=== PATIENT | male | born 1990 | race Caucasian/White ===

== ENCOUNTER 2017-04-07 08:59 | Emergency (ER) | payer SELFPAY ==
[~2017-04-07] VITALS: Ht 175.3 cm; Wt 67.6 kg
[~2017-04-07 08:59] MED LIST: AMOX500C2 PO; CITA10TA PO; CPR500T PO; FLUO10CA29 PO; HYDR-3720 PO; HYDR1TAB PO; LISD50CA PO; LISD60CA PO; METH10TA3 PO; NAPR-243 PO; NAPR550T PO; PENI250T4; PHEN1SUP3 RC; TRM50T; TRM50T PO; [UNRECOGNIZED DRUG - OTHER]
[2017-04-07] MEDS ORDERED: METH10TA3 PO (09:20)
[2017-04-07] MEDS ORDERED: METH-288 (09:20)
[2017-04-07] MEDS ORDERED: TRAZ100T92 PO (09:21)
[2017-04-07 09:54] LABS: BASOPHILS % (AUTO) 0 % (0-10); EOSINOPHILS % (AUTO) 0 % (0-10); LYMPHOCYTES # (AUTO) 1.8 X 10^3 (1.0-4.0); LYMPHOCYTES % (AUTO) 13 % (12-44); MEAN CORPUSCULAR HEMOGLOBIN 33 PG (25-34); MEAN CORPUSCULAR HGB CONC 35 G/DL (32-36); MEAN CORPUSCULAR VOLUME 95 FL (80-99); MEAN PLATELET VOLUME 9.5 FL (7.4-10.4); MONOCYTES # (AUTO) 0.8 X 10^3 (0.0-1.0); MONOCYTES % (AUTO) 6 % (0-12); NEUTROPHILS % (AUTO) 81 % (42-75); PLATELET COUNT 191 10^3/uL (130-400); RED CELL DISTRIBUTION WIDTH 12.8 % (10.0-14.5); WHITE BLOOD COUNT 13.6 10^3/uL (4.3-11.0)
[2017-04-07 10:15] LABS: ALANINE AMINOTRANSFERASE 78 U/L (0-55); ALBUMIN 4.7 G/DL (3.2-4.5); ANION GAP 12 MMOL/L (5-14); ASPARTATE AMINO TRANSFERASE 34 U/L (5-34); BILIRUBIN,TOTAL 1.6 MG/DL (0.1-1.0); BLOOD UREA NITROGEN 15 MG/DL (7-18); BUN/CREATININE RATIO 16; CALCIUM 9.5 MG/DL (8.5-10.1); CARBON DIOXIDE 22 MMOL/L (21-32); CHLORIDE 107 MMOL/L (98-107); CREATININE SERUM 0.95 MG/DL (0.60-1.30); GFR ESTIMATED > 60; GLUCOSE 82 MG/DL (70-105); POTASSIUM 3.5 MMOL/L (3.6-5.0); SODIUM 141 MMOL/L (135-145); TOTAL PROTEIN 6.5 G/DL (6.4-8.2)
[2017-04-07 10:17] LABS: ACETAMINOPHEN < 10 UG/ML (10-30)
--- NOTE | 2017-04-07 10:43 | ED Psychosocial ---
General Chief Complaint: Substance Abuse Stated Complaint: OVERDOSE Nursing Triage Note: AMBULATED TO ROOM 08 ET STATES HE HAS TAKEN X31 TABS OF 10MG RITALIN SINCE YESTERDAY AM TO GET HIGH. STATES THIS IS NOT THE FIRST TIME HE HAS DONE THIS. STATES HE HURTS ALL OVER AND IS EXHAUSTED. Source: patient, family Exam Limitations: no limitations History of Present Illness Time seen by provider: 10:10 Initial Comments The patient is a 26-year-old white male who was brought to the emergency room by his family. He apparently had taken as many as 31 10 mg Ritalin since yesterday. This was evidently done in effort to get high. He has had multiple episodes of drug abuse. His mother states that she believes that he also by his narcotics off the street and anything else that might be available. She fears for his safety both immediately and in the future. He is a patient at [facility]. He also apparently went to work this morning and the because of behaviors was fired. Timing/Duration: just prior to arrival Severity: moderate Associated Symptoms: anxiety, impaired concentration, other (diaphoresis) Allergies and Home Medications Allergies Uncoded Allergies: unknown topical antibiotic (Allergy, Unknown, 04/19/16) Home Medications Methylphenidate HCl 10 Mg Tablet, #60 (Reported) Methylphenidate HCl 10 Mg Tablet, 10 MG PO, (Reported) Trazodone HCl 100 Mg Tablet, 100 MG PO HS, (Reported) Constitutional: see HPI, diaphoresis, dizziness, other (anxiety tearfulness) EENTM: no symptoms reported Cardiovascular: no symptoms reported Gastrointestinal: loss of appetite Genitourinary: no symptoms reported Musculoskeletal: no symptoms reported Skin: no symptoms reported Psychiatric/Neurological: No Symptoms Reported Past Clixgaw-Ijxtqg-Bseiuu Hx Patient Social History Alcohol Use: Rarely Uses Recreational Drug Use: Yes (POT) Drug of Choice: POT AND RX RITALIN Smoking Status: Current Everyday Smoker Type Used: Cigarettes Recent Foreign Travel: No Contact w/Someone Who Travel: No Recent Infectious Disease Expo: No Recent Hopitalizations: No Immunizations Up To Date Tetanus Booster (TDap): Less than 5yrs Seasonal Allergies Seasonal Allergies: No Surgeries HX Surgeries: Yes (Ear tubes as a child) Surgeries: Ear Surgery, Tonsillectomy Respiratory Hx Respiratory Disorders: No Cardiovascular Hx Cardiac Disorders: No Neurological Hx Neurological Disorders: No Reproductive System Hx Reproductive Disorders: No Sexually Transmitted Disease: No HIV/AIDS: No Genitourinary Hx Genitourinary Disorders: Yes (EPIDIDYMITIS) Gastrointestinal Hx Gastrointestinal Disorders: No Musculoskeletal Hx Musculoskeletal Disorders: Yes (LOW BACK PAIN X2 MONTHS) Endocrine Hx Endocrine Disorders: No HEENT HX ENT Disorders: No Cancer Hx Cancer: No Psychosocial Hx Psychiatric Problems: Yes Behavioral Health Disorders: ADD/ADHD, Anxiety, Depression Integumentary HX Skin/Integumentary Disorder: No Blood Transfusions Hx Blood Disorders: No Adverse Reaction to a Blood Tr: No Family Medical History Significant Family History: No Pertinent Family Hx Physical Exam Vital Signs Vital Sign - Last 12Hours 04/07/17 09:05 Temp 98.0 Pulse 86 Resp 16 B/P (MAP) 123/80 Pulse Ox 100 O2 Delivery Room Air Capillary Refill : Less Than 3 Seconds General Appearance: moderate distress HEENT: normal ENT inspection Neck: full range of motion Respiratory: chest non-tender, lungs clear, normal breath sounds, no respiratory distress, no accessory muscle use, respiratory distress Cardiovascular: normal peripheral pulses, regular rate, rhythm, no edema, no gallop, no JVD, no murmur Gastrointestinal: normal bowel sounds, non tender, soft, no organomegaly, no pulsatile mass Extremities: normal range of motion Neurologic/Psychiatric: decision science analyst II-XII nml as tested, no motor/sensory deficits, alert, normal mood/affect, oriented x 3, abnormal cerebellar tests, abnormal decision science analyst II-XII Progress/Results/Core Measures Results/Orders Lab Results Laboratory Tests Test 04/07/17 09:45 Range/Units White Blood Count 13.6 H 4.3-11.0 10^3/uL Red Blood Count 4.90 4.35-5.85 10^6/uL Hemoglobin 16.3 13.3-17.7 G/DL Hematocrit 47 40-54 % Mean Corpuscular Volume 95 80-99 FL Mean Corpuscular Hemoglobin 33 25-34 PG Mean Corpuscular Hemoglobin Concent 35 32-36 G/DL Red Cell Distribution Width 12.8 10.0-14.5 % Platelet Count 191 130-400 10^3/uL Mean Platelet Volume 9.5 7.4-10.4 FL Neutrophils (%) (Auto) 81 H 42-75 % Lymphocytes (%) (Auto) 13 12-44 % Monocytes (%) (Auto) 6 0-12 % Eosinophils (%) (Auto) 0 0-10 % Basophils (%) (Auto) 0 0-10 % Neutrophils # (Auto) 11.0 H 1.8-7.8 X 10^3 Lymphocytes # (Auto) 1.8 1.0-4.0 X 10^3 Monocytes # (Auto) 0.8 0.0-1.0 X 10^3 Eosinophils # (Auto) 0.0 0.0-0.3 10^3/uL Basophils # (Auto) 0.0 0.0-0.1 10^3/uL Sodium Level 141 135-145 MMOL/L Potassium Level 3.5 L 3.6-5.0 MMOL/L Chloride Level 107 98-107 MMOL/L Carbon Dioxide Level 22 21-32 MMOL/L Anion Gap 12 5-14 MMOL/L Blood Urea Nitrogen 15 7-18 MG/DL Creatinine 0.95 0.60-1.30 MG/DL Estimat Glomerular Filtration Rate > 60 BUN/Creatinine Ratio 16 Glucose Level 82 70-105 MG/DL Calcium Level 9.5 8.5-10.1 MG/DL Total Bilirubin 1.6 H 0.1-1.0 MG/DL Aspartate Amino Transf (AST/SGOT) 34 5-34 U/L Alanine Aminotransferase (ALT/SGPT) 78 H 0-55 U/L Alkaline Phosphatase 73 40-136 U/L Total Protein 6.5 6.4-8.2 G/DL Albumin 4.7 H 3.2-4.5 G/DL Urine Opiates Screen NEGATIVE NEGATIVE Urine Oxycodone Screen NEGATIVE NEGATIVE Urine Methadone Screen NEGATIVE NEGATIVE Urine Propoxyphene Screen NEGATIVE NEGATIVE Acetaminophen Level < 10 L 10-30 UG/ML Urine Barbiturates Screen NEGATIVE NEGATIVE Ur Tricyclic Antidepressants Screen NEGATIVE NEGATIVE Urine Phencyclidine Screen NEGATIVE NEGATIVE Urine Amphetamines Screen NEGATIVE NEGATIVE Urine Methamphetamines Screen NEGATIVE NEGATIVE Urine Benzodiazepines Screen NEGATIVE NEGATIVE Urine Cocaine Screen NEGATIVE NEGATIVE Urine Cannabinoids Screen NEGATIVE NEGATIVE My Orders Orders - JORDAN MENDEZ MD Acetaminophen (04/07/17 09:32) Cbc With Automated Diff (04/07/17 09:32) Comprehensive Metabolic Panel (04/07/17 09:32) Drug Screen Stat (Urine) (04/07/17 09:32) Ekg Tracing (04/07/17 10:37) Vital Signs/I&O Vital Sign - Last 12Hours 04/07/17 09:05 Temp 98.0 Pulse 86 Resp 16 B/P (MAP) 123/80 Pulse Ox 100 O2 Delivery Room Air Blood Pressure Mean: 94 Departure Communication Progress Notes Tox screen was negative. Basic laboratory was unremarkable. EKG suggested the possibility of a preexcitation syndrome but was not tachycardic. Impression Impression: Primary Impression: overdose Ritalin Disposition: HOME, SELF-CARE Condition: Improved Departure-Patient Inst. Decision time for Depature: 11:18 Referrals: [facility] (PCP/Family) Primary Care Physician Patient Instructions: ALCOHOL AND SUBSTANCE ABUSE Add. Discharge Instructions: All discharge instructions reviewed with patient and/or family. Voiced understanding. Refrain from further use of Ritalin. Keep scheduled appointment with mental health provider. JORDAN MENDEZ MD April 07, 2017 10:42
[2017-04-07 11:24] VITALS: BP 109/75
== END 2017-04-07 11:24 | disposition home or self-care (01) ==
LOC: EDUNIT# 08:59 → ER 09:03
DX: T43.632A Poisoning by methylphenidate, intentional self-harm, initial encounter (principal); F17.210 Nicotine dependence, cigarettes, uncomplicated
CPT/HCPCS: 36415; 80053; 80306; 80329; 85025; 93005

== ENCOUNTER 2020-11-08 13:27 | Emergency (ER) | payer OTHER ==
[~2020-11-08] VITALS: Ht 175 cm; Wt 65.0 kg
[~2020-11-08 13:27] MED LIST changes: +METH-288; +TRAZ-227 PO
[2020-11-08 14:05] VITALS: BP 119/80
== END 2020-11-08 14:22 | disposition left against medical advice (07) ==
LOC: EDUNIT# 13:27 → ER 13:29
DX: K08.89 Other specified disorders of teeth and supporting structures (principal)
CPT/HCPCS: 99282

== ENCOUNTER 2023-07-27 18:17 | Emergency (ER) | payer MEDICAID ==
[~2023-07-27] VITALS: Ht 175 cm; Wt 66.6 kg
[2023-07-27] MEDS ORDERED: HYDROcodone/ACETAMINOPHEN 5 MG/325 MG TABLET PO ONE (19:00)
[2023-07-27] MEDS ORDERED: CLINDAMYCIN 150 MG CAPSULE PO STA (19:00)
[2023-07-27] MEDS ORDERED: CLIN-144 PO (19:04)
--- NOTE | 2023-07-27 19:05 | ED EENT ---
History of Present Illness General Chief Complaint: Dental Problems/Pain Stated Complaint: DENTAL PAIN Nursing Triage Note: PT AMBULATORY TO ER WTIH SO. REPORTS L LOWER DENTAL PAIN X 3 DAYS. SEEN AT CLINIC YESTERDAY, GIVEN RX FOR AMOXIL AND MAGIC MOUTHWASH, PT HAS ALSO BEEN TAKING TYLENOL/IBUPROFEN. NO RELIEF FROM PAIN. Source: patient Exam Limitations: no limitations History of Present Illness Date Seen by Provider: Jul 27, 2023 Time Seen by Provider: 19:01 Initial Comments Patient is a 32-year-old male who presents ED with left lower dental pain for the past 3 days. Pain is described as sharp and constant. Pain states he was seen at the clinic yesterday. Was given amoxicillin and Magic mouthwash. Has been using topical oral gel without much improvement. Denies any facial swelling or redness. Pain with eating. Has not been able to eat today. History of similar type dental pain in the past. Has not been able to follow-up with a dentist. Denies fever, chills, nausea vomit, diarrhea, headache, dizziness Allergies and Home Medications Allergies Uncoded Allergies: unknown topical antibiotic (Allergy, Unknown, 04/19/16) Patient Home Medication List Home Medication List Reviewed: Yes Clindamycin HCl (Clindamycin HCl) 300 Mg Capsule, 300 MG PO QID Prescribed by: DERIAN PANDYA on 07/27/23 190 Methylphenidate HCl (Methylphenidate HCl) 10 Mg Tablet, (Reported) Entered as Reported by: LACEY PRO on 04/07/17 09 Methylphenidate HCl (Ritalin) 10 Mg Tablet, 10 MG PO, (Reported) Entered as Reported by: LACEY PRO on 04/07/17 09 Trazodone HCl (Trazodone HCl) 100 Mg Tablet, 100 MG PO HS, (Reported) Entered as Reported by: LACEY PRO on 04/07/17 0921 Review of Systems Review of Systems Constitutional: No chills, No diaphoresis Eyes: Denies Drainage, Denies Decreased Acuity Ears: Denies Dizziness, Denies Pain Nose: denies clots, denies congestion Mouth: loose teeth, pain Throat: denies pain Respiratory: No cough, No dyspnea on exertion Cardiovascular: No chest pain Gastrointestinal: No abdominal pain, No diarrhea, No nausea, No vomiting Musculoskeletal: No back pain, No joint pain Skin: No change in color, No change in hair/nails All Other Systems Reviewed Negative Unless Noted: Yes Past Rktfqan-Dggtsz-Qtgxko Hx Patient Social History Tobacco Use?: Yes Tobacco type used: Cigarettes Smoking Status: Current Everyday Smoker Substance use?: No Alcohol Use?: Yes Immunizations Up To Date Tetanus Booster (TDap): Less than 5yrs First/Initial COVID19 Vaccinat: RECEIVED Second COVID19 Vaccination Juliano: RECEIVED Third COVID19 Vaccination Date: RECEIVED COVID19 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[employer]: [employer] Seasonal Allergies Seasonal Allergies: No Past Medical History Surgeries: Yes (Ear tubes as a child) Ear Surgery, Tonsillectomy Respiratory: No Cardiac: No Neurological: No Reproductive Disorders: No Sexually Transmitted Disease: No HIV/AIDS: No Genitourinary: No Gastrointestinal: No Musculoskeletal: Yes (LOW BACK PAIN X2 MONTHS) Endocrine: No Cancer: No Psychosocial: Yes (HX OF RX DRUG ABUSE) ADD/ADHD, Anxiety, Depression Integumentary: No Blood Disorders: No Adverse Reaction/Blood Tranf: No Family Medical History No Pertinent Family Hx Physical Exam Vital Signs Vital Signs - First Documented 07/27/23 18:32 Temp 36.4 Pulse 90 Resp 18 B/P (MAP) 135/99 (111) Pulse Ox 99 O2 Delivery Room Air Height, Weight, BMI Height: 5'9.00" Weight: 150lbs. oz. [id number]; 21.00 BMI Method:Stated General Appearance: WD/WN, no apparent distress Eyes: bilateral eye normal inspection, bilateral eye PERRL, bilateral eye EOMI Ears: bilateral ear auricle normal, bilateral ear canal normal, bilateral ear TM normal Nose: normal inspection Mouth/Throat: other (poor dentention throughout. Extensive decay noted throu ghout. Gum swelling erythema. No fluctuant mass.) Neck: non-tender, full range of motion, supple, normal inspection Cardiovascular: regular rate, rhythm, no edema, no gallop, no JVD Respiratory: chest non-tender, lungs clear, normal breath sounds, no respiratory distress, no accessory muscle use Gastrointestinal: normal bowel sounds, non tender, soft, no organomegaly Neurologic/Psychiatric: circulation representative II-XII nml as tested, no motor/sensory deficits, alert, normal mood/affect, oriented x 3 Skin: normal color, warm/dry Progress/Results/Core Measures Results/Orders My Orders Orders - PAXTON MURILLO Clindamycin Capsule (Clindamycin Capsule (07/27/23 19:00) Hydrocodone/Apap 5/325 Tablet (Hydrocod (07/27/23 19:00) Medications Given in ED Current Medications Medications Dose Ordered Sig/Mack Route Start Time Stop Time Status Last Admin Dose Admin Acetaminophen/ Hydrocodone Bitart 1 ea ONCE ONCE PO 07/27/23 19:00 07/27/23 19:02 DC 07/27/23 19:10 1 EA Vital Signs/I&O 07/27/23 07/27/23 07/27/23 18:32 19:10 20:00 Temp 36.4 36.4 36.0 Pulse 90 87 Resp 18 16 B/P (MAP) 135/99 (111) 127/85 Pulse Ox 99 100 O2 Delivery Room Air Room Air Blood Pressure Mean: 111 Departure Communication (PCP) Differential diagnosis, dental abscess, dental caries. Patient with extensive decay throughout. Gum swelling erythema left lower jaw and left upper dental. Patient is currently on amoxicillin. Patient has been using Magic mouthwash, topical ointment and ibuprofen without much improvement. There is no evidence of facial swelling or redness. Vital signs stable. Provided a dose of hydrocodone. Recommended dental block which patient agreed. I Use lidocaine 1% local supraperiosteal infiltration 1 ml to the the left lower second molar. Improvement of pain. Patient does not appear in any acute distress. Oropharynx patent without erythema. Patient received a dose of clindamycin. We will switch amoxicillin to clindamycin. Discharged with few days worth of pain medication. Continue with your pain regimen. Follow-up with outpatient dental. There is no fluctuant mass need incision and drainage. Patient tolerated secretions. Does not appear in acute distress Impression Primary Impression: Pain, dental Disposition: HOME, SELF-CARE Condition: Stable Departure-Patient Inst. Decision time for Depature: 19:04 Referrals: [facility] (PCP/Family) Primary Care Physician Patient Instructions: Dental Pain Scripts Clindamycin HCl (Clindamycin HCl) 300 Mg Capsule 300 MG PO QID for 7 Days, #7 CAP Prov: PAXTON MURILLO 07/27/23 PAXTON MURILLO Jul 27, 2023 19:05
[2023-07-27 20:00] VITALS: BP 127/85
== END 2023-07-27 20:01 | disposition home or self-care (01) ==
LOC: EDUNIT# 18:17 → ER 18:20
DX: K02.9 Dental caries, unspecified (principal); F17.210 Nicotine dependence, cigarettes, uncomplicated
CPT/HCPCS: 99283